=== PATIENT | female | born 1995 | race Hispanic/Latino ===

== ENCOUNTER 2020-12-12 12:39 | Inpatient (IN) | payer BC, MEDICAID ==
[2020-12-12 13:01] VITALS: BMI 31.3
[2020-12-12] MEDS ORDERED: Dextrose 5% in Water 1,000 ML IV PRN (13:52)
[2020-12-12] MEDS ORDERED: Dextrose 50% Abboject 50 ML SYRINGE SLOW IVP PRN (13:52)
[2020-12-12] MEDS ORDERED: Promethazine HCl 25 MG/ML VIAL IM PRN (13:52)
[2020-12-12] MEDS ORDERED: hydrALAZINE 20 MG/ML VIAL SLOW IVP PRN (13:52)
[2020-12-12] MEDS ORDERED: HumaLOG 300 UNITS/3 ML VIAL SC PRN (13:52)
[2020-12-12] MEDS ORDERED: Docusate 100 MG CAP PO PRN (13:52)
[2020-12-12] MEDS ORDERED: Acetaminophen 500 MG TAB PO PRN (13:52)
[2020-12-12] MEDS ORDERED: Ondansetron PF 4 MG/2 ML Vial IVP PRN (13:52)
[2020-12-12 14:57] LABS: ALT (SGPT) 33 U/L (8-55); AST (SGOT) 20 U/L (5-34); Albumin 4.1 g/dL (3.5-5.0); Alkaline Phosphatase 80 U/L (40-110); Anion Gap 12 mmol/L (10-20); BUN (Urea Nitrogen) 8 mg/dL (7.0-18.7); Bilirubin, Total 0.2 mg/dL (0.2-1.2); Calc. Creatinine Clearance 175 mL/min (70-130); Calcium 9.5 mg/dL (7.8-10.44); Carbon Dioxide 26 mmol/L (22-29); Chloride 101 mmol/L (98-107); Globulin 3.6 g/dL (2.4-3.5); Glucose 146 mg/dL (70-105); Potassium 3.7 mmol/L (3.5-5.1); Protein, Total 7.7 g/dL (6.0-8.3); Sodium 135 mmol/L (136-145)
[2020-12-12 15:17] LABS: HIV (1/2) Antibody/Antigen Non-Reactive (NonReactive); HIV 1/2 INDEX 0.07 S/CO (<1.00); Hep B Surf Ag Non-Reactive S/CO (NonReactive); Thyroid Stimulating Hormone 1.5474 uIU/mL (0.35-4.94)
[2020-12-12 15:18] LABS: Hemoglobin 12.3 g/dL (12.0-15.5); Mean Corpuscular HGB CONC 33.4 g/dL (32.0-36.0); Mean Corpuscular Hemoglobin 30.4 pg (27.0-33.0); Mean Corpuscular Volume 90.9 fl (81.6-98.3); Mean Platelet Volume 9.6 fl (7.4-10.4); Platelet Count 398 10x3/uL (150-450); Red Blood Cell (RBC) Count 4.05 10x6/uL (3.90-5.03); White Blood Cell (WBC) Count 10.6 10x3/uL (3.5-10.5)
[2020-12-12 15:18] LABS: Syphilis Antibody Nonreactive (Nonreactive); Syphilis Antibody Index 0.03 S/CO (<1.00 Non-Reactive)
[2020-12-12 15:36] LABS: HBSAg Index 0.13 S/CO (0-0.99)
[2020-12-12 16:00] LABS: Creatinine, Urine 20.92 mg/dL (47-110); Protein, Urine Random Quant Less than 10 mg/dL (1-14)
[2020-12-12] MEDS: HumaLOG 300 UNITS/3 ML VIAL SC SCH (17:09)
[2020-12-12 20:44] LABS: Hemoglobin A1c 7.3 % (4.0-6.0)
[2020-12-12] MEDS: NPH, Human Insulin Isophane 300 UNIT/3 ML VIAL SC SCH (21:19)
[2020-12-12 21:40] LABS: Hep C IgG Ab Non-Reactive (NonReactive); Hep C Index 0.06 S/CO (0-0.79)
[2020-12-12 21:42] LABS: HBSAB Concentration 13.34 mIU/mL; Hep B Surf AB Reactive (NonReactive)
[2020-12-13 02:41] LABS: SARS-CoV-2 PCR NAA for Saliva Not Detected (NotDetected)
[2020-12-13] MEDS: HumaLOG 300 UNITS/3 ML VIAL SC SCH ×2 (08:30→17:28)
[2020-12-13] MEDS ORDERED: NPH, Human Insulin Isophane 300 UNIT/3 ML VIAL SC SCH (09:00)
[2020-12-13] MEDS ORDERED: Prenatal Vitamin 1 TAB PO SCH (11:00)
[2020-12-13] MEDS: HumaLOG 300 UNITS/3 ML VIAL SC PRN ×2 (12:00→14:37)
[2020-12-13 16:11] LABS: Urine Total Volume 1525 mL (600-1600)
[2020-12-13] MEDS ORDERED: HumaLOG 300 UNITS/3 ML VIAL SC PRN (16:13)
[2020-12-13 16:22] LABS: Protein, Urine Less than 10 mg/dL (1-14)
[2020-12-13] MEDS: NPH, Human Insulin Isophane 300 UNIT/3 ML VIAL SC SCH (22:16)
[2020-12-14] MEDS ORDERED: HumaLOG 300 UNITS/3 ML VIAL SC SCH ×2 (07:28→17:00)
[2020-12-14] MEDS: HumaLOG 300 UNITS/3 ML VIAL SC SCH (08:41)
[2020-12-14] MEDS ORDERED: Prenatal Vitamin 1 TAB PO SCH (09:00)
[2020-12-14] MEDS ORDERED: NPH, Human Insulin Isophane 300 UNIT/3 ML VIAL SC SCH (09:00)
[2020-12-14 11:33] VITALS: BP 102/62; TEMP 98.2
== END 2020-12-14 12:50 | disposition home or self-care (01) | DRG 833 ==
LOC: CSHPP 12:39
PROVIDERS: ADMIT Family Medicine; ATTEND Family Medicine
DX: O24.111 Pre-existing type 2 diabetes mellitus, in pregnancy, first trimester (principal); Z3A.08 8 weeks gestation of pregnancy; Z79.84 Long term (current) use of oral hypoglycemic drugs; E11.65 Type 2 diabetes mellitus with hyperglycemia
CPT/HCPCS: 36415; 36416; 80053; 82570; 83036; 84156; 84443; 85027; 86706; 86762; 86780; 86803; 86850; 86900; 86901; 87086; 87340; 87389; 87635; J1815; U0003; U0005

== ENCOUNTER 2022-05-04 11:01 | Inpatient (IN) | payer OTHER ==
[2022-05-04] MEDS ORDERED: Labetalol HCl 100 MG/20 ML VIAL ONE (11:27)
[2022-05-04 11:38] LABS: #Eosinphils 0.1 10x3/uL (0.0-0.5); #Monocytes 0.6 10x3/uL (0.0-1.1); #Neutrophils 6.4 10x3/uL (1.5-8.4); %Basophils 0.2 % (0.0-2.0); %Eosinophils 0.7 % (0.0-6.0); %Lymphocytes 28.6 % (18.0-47.0); %Monocytes 5.7 % (0.0-10.0); %Neutrophils 64.4 % (40.0-75.0); Hemoglobin 11.1 g/dL (12.0-15.5); Mean Corpuscular HGB CONC 34.2 g/dL (32.0-36.0); Mean Corpuscular Hemoglobin 30.3 pg (27.0-33.0); Mean Corpuscular Volume 88.8 fl (81.6-98.3); Mean Platelet Volume 9.8 fl (7.4-10.4); Platelet Count 293 10x3/uL (150-450); RBC Distribution Width 12.8 % (11.5-14.5); Red Blood Cell (RBC) Count 3.66 10x6/uL (3.90-5.03); White Blood Cell (WBC) Count 9.9 10x3/uL (3.5-10.5)
[2022-05-04] MEDS ORDERED: Magnesium 2 GM/50 ML BAG (IN WATER) ONE (11:40)
[2022-05-04 11:54] LABS: ALT (SGPT) 28 U/L (8-55); AST (SGOT) 34 U/L (5-34); Albumin 3.5 g/dL (3.5-5.0); Alkaline Phosphatase 101 U/L (40-110); Anion Gap 13 mmol/L (10-20); BUN (Urea Nitrogen) 8 mg/dL (7.0-18.7); Bilirubin, Total 0.2 mg/dL (0.2-1.2); Calc. Creatinine Clearance 0 mL/min (70-130); Calcium 9.3 mg/dL (7.8-10.44); Carbon Dioxide 24 mmol/L (22-29); Chloride 104 mmol/L (98-107); Estimated GFR 125; Globulin 3.4 g/dL (2.4-3.5); Glucose 78 mg/dL (70-105); Potassium 3.8 mmol/L (3.5-5.1); Protein, Total 6.9 g/dL (6.0-8.3); Sodium 137 mmol/L (136-145)
[2022-05-04] MEDS ORDERED: Acetaminophen 500 MG TAB ONE (12:48)
[2022-05-04] MEDS ORDERED: Labetalol HCl 100 MG/20 ML VIAL SLOW IVP PRN ×3 (12:52)
[2022-05-04] MEDS ORDERED: Calcium Gluc 4.6 MEQ/10 ML (100 MG/ML) SLOW IVP PRN (12:52)
[2022-05-04] MEDS ORDERED: Lorazepam 2 MG/ML VIAL SLOW IVP PRN (12:52)
[2022-05-04] MEDS ORDERED: hydrALAZINE 20 MG/ML VIAL SLOW IVP PRN ×2 (12:52)
[2022-05-04] MEDS ORDERED: Acetaminophen 500 MG TAB PO PRN (12:52)
[2022-05-04 13:00] LABS: Bilirubin Neg (Negative); Blood, Urine 150 (Negative); Clarity Clear (Clear); Glucose, Urine (Dipstick) Normal (Negative); Ketone, Urine Negative (Negative); Leukocyte Negative (Negative); Nitrite Negative (Negative); Protein, Urine (Dipstick) 30 mg/dl (Neg-Trace); Urobilinogen Normal mg/dL (Less than 2); pH, Urine 6.5 (5.0-9.0)
[2022-05-04] MEDS ORDERED: Labetalol HCl 100 MG TAB PO SCH ×2 (13:00→21:00)
[2022-05-04] MEDS ORDERED: Polyethylene Glycol 3350 17 GM Packet PO PRN (13:14)
[2022-05-04] MEDS ORDERED: HumaLOG 300 UNITS/3 ML VIAL SC PRN (13:17)
[2022-05-04] MEDS ORDERED: Dextrose 5% in Water 1,000 ML IV PRN (13:17)
[2022-05-04] MEDS ORDERED: Dextrose 50% Abboject 50 ML SYRINGE SLOW IVP PRN (13:17)
[2022-05-04 13:21] LABS: Bacteria/HPF Rare-Few HPF (None Seen); RBC/HPF 0-3 HPF (0-3); Squamous Epithelial 0-3 HPF (0-3); WBC/HPF None Seen HPF (0-3)
[2022-05-04 13:29] LABS: Creatinine, Urine 61.48 mg/dL (47-110)
[2022-05-04] MEDS: Ibuprofen 800 MG TAB PO SCH ×2 (14:42→21:14)
[2022-05-04 14:59] VITALS: BMI 54.8
[2022-05-04] MEDS: metFORMIN 500 MG TAB PO SCH (15:56)
[2022-05-05 04:45] LABS: #Eosinphils 0.1 10x3/uL (0.0-0.5); #Monocytes 0.4 10x3/uL (0.0-1.1); #Neutrophils 3.7 10x3/uL (1.5-8.4); %Basophils 0.3 % (0.0-2.0); %Eosinophils 1.3 % (0.0-6.0); %Lymphocytes 37.7 % (18.0-47.0); %Neutrophils 54.6 % (40.0-75.0); Hemoglobin 10.2 g/dL (12.0-15.5); Mean Corpuscular Hemoglobin 30.1 pg (27.0-33.0); Mean Corpuscular Volume 88.5 fl (81.6-98.3); Mean Platelet Volume 9.3 fl (7.4-10.4); Platelet Count 286 10x3/uL (150-450); RBC Distribution Width 12.7 % (11.5-14.5); Red Blood Cell (RBC) Count 3.39 10x6/uL (3.90-5.03); White Blood Cell (WBC) Count 6.7 10x3/uL (3.5-10.5)
[2022-05-05 05:01] LABS: ALT (SGPT) 42 U/L (8-55); AST (SGOT) 40 U/L (5-34); Albumin 3.1 g/dL (3.5-5.0); Alkaline Phosphatase 88 U/L (40-110); Anion Gap 14 mmol/L (10-20); BUN (Urea Nitrogen) 9 mg/dL (7.0-18.7); Bilirubin, Total 0.2 mg/dL (0.2-1.2); Calc. Creatinine Clearance 321 mL/min (70-130); Calcium 8.4 mg/dL (7.8-10.44); Carbon Dioxide 21 mmol/L (22-29); Chloride 108 mmol/L (98-107); Estimated GFR 128; Globulin 2.9 g/dL (2.4-3.5); Glucose 77 mg/dL (70-105); Potassium 4.1 mmol/L (3.5-5.1); Sodium 139 mmol/L (136-145)
[2022-05-05] MEDS: Ibuprofen 800 MG TAB PO SCH (05:40)
[2022-05-05] MEDS ORDERED: Ferrous Sulfate 325 MG TAB PO SCH (09:00)
[2022-05-05] MEDS ORDERED: Prenatal Vitamin 1 TAB PO SCH (09:00)
[2022-05-05] MEDS ORDERED: Labetalol HCl 200 MG TAB PO SCH ×2 (09:30→21:00)
[2022-05-05] MEDS: metFORMIN 500 MG TAB PO SCH (09:58)
[2022-05-05 16:24] VITALS: BP 141/82; TEMP 98.3
== END 2022-05-05 17:48 | disposition home or self-care (01) | DRG 776 ==
LOC: CSHERS 11:01 → CSHLD 13:42 → CSHPP 14:25
PROVIDERS: ADMIT Emergency Medicine; ATTEND Emergency Medicine
DX: O14.15 Severe pre-eclampsia, complicating the puerperium (principal); Z79.899 Other long term (current) drug therapy; Z79.84 Long term (current) use of oral hypoglycemic drugs; O24.13 Pre-existing type 2 diabetes mellitus, in the puerperium; E11.9 Type 2 diabetes mellitus without complications; E66.9 Obesity, unspecified; F32.9 Major depressive disorder, single episode, unspecified; O99.345 Other mental disorders complicating the puerperium; O99.215 Obesity complicating the puerperium; Z90.49 Acquired absence of other specified parts of digestive tract
CPT/HCPCS: 36415; 36416; 80053; 81003; 81015; 82570; 84156; 85025; 96365; 96375; J3475